=== PATIENT | male | born 1965 | race Caucasian/White ===

== ENCOUNTER → 2016-06-04 | Day surgery (SDC) | payer MEDICARE, OTHER ==
[2016-06-04 11:16] LABS: HEMOGLOBIN 13.5 gm/dl (14.0-17.5); RED BLOOD COUNT 4.33 M/UL (4.20-5.50); WHITE BLOOD COUNT 13.6 K/UL (4.5-11.0)
[2016-06-04 11:34] LABS: BUN/CREATININE RATIO 4 (0-10)
== END | disposition home or self-care (01) ==
LOC: OPSV2 10:00
PROVIDERS: Orthopaedic Surgery
DX: Z01.812 Encounter for preprocedural laboratory examination (principal); Z01.810 Encounter for preprocedural cardiovascular examination; Z01.818 Encounter for other preprocedural examination; M16.11 Unilateral primary osteoarthritis, right hip; I10 Essential (primary) hypertension; R06.09 Other forms of dyspnea; K74.60 Unspecified cirrhosis of liver
CPT/HCPCS: 36415; 36600; 71020; 80048; 80076; 81001; 82803; 85027; 85610; 85730; 87081; 87086; 93005

== ENCOUNTER → 2016-06-05 | Outpatient (CLI) | payer MEDICARE, OTHER | LOC: OPSV 10:47 → US 11:00 → OPSV 11:00 | PROC: 0W9G3ZZ Drainage of Peritoneal Cavity, Percutaneous Approach (ICD-10-PCS; principal; 2016-06-05) | DX: K70.30 Alcoholic cirrhosis of liver without ascites (principal); R18.8 Other ascites | CPT/HCPCS: 96365; P9047 ==